=== PATIENT | male | born 1965 | race Two or more races ===

== ENCOUNTER 2017-04-24 10:18 | Emergency (ER) | payer BC, OTHER ==
[2017-04-24 10:24] VITALS: BP 131/77; PULSE 86; TEMP 98.9; BMI 42.3
[2017-04-24] MEDS ORDERED: IBUPROFEN 400 MG TABLET (FP) PO ONE (11:31)
--- NOTE | 2017-04-24 11:56 | PDOC ---
History of Present Illness - General Chief Complaint: Abscess Boil Stated Complaint: WOUND INFECTION Time Seen by Provider: 04/24/17 11:13 History Source: Patient - History of Present Illness Timing/Duration: reports: other Location: reports: torso Past History - Past Medical History Allergies/Adverse Reactions: Allergies Allergy/AdvReac Type Severity Reaction Status Date / Time No Known Allergies Allergy Verified 04/24/17 10:24 Home Medications: Ambulatory Orders Clindamycin [Cleocin -] 300 mg PO Q6HPO #27 capsule 04/24/17 Ibuprofen [Motrin -] 600 mg PO TID #21 tablet 04/24/17 Diabetes: No (BEFORE GASTYRIC BYPASS) - Surgical History Abdominal Surgery: (GASTRIC BY PASS) Cholecystectomy: Yes - Psycho/Social/Smoking Cessation Hx Suicidal Ideation: No Smoking History: Never smoked Hx Alcohol Use: Yes (OCCASIONALLY) Drug/Substance Use Hx: No Review of Systems - Review of Systems Constitutional: No: Chills, Fever, Malaise ABD/GI: Yes: Other (abscess to abd wall) *Physical Exam - Vital Signs Last Vital Signs Temp Pulse Resp BP Pulse Ox 98.9 F 86 16 131/77 98 04/24/17 10:19 04/24/17 10:19 04/24/17 10:19 04/24/17 10:19 04/24/17 10:19 - Physical Exam General Appearance: Yes: Appropriately Dressed. No: Apparent Distress HEENT: positive: Normal Voice Neck: positive: Supple Respiratory/Chest: negative: Respiratory Distress Gastrointestinal/Abdominal: positive: Other (4x4cm induration w/ overlying erythema to mid lower abd wall, ?fluctuance) Integumentary: positive: Dry, Warm Neurologic: positive: Fully Oriented, Alert, Normal Mood/Affect Procedures - Incision and Drainage I&D Site: Bilateral: Abdomen Betadine cleansed: Yes Anesthesia: 1% Lidocaine Blade Size: 11 Attempts: 1 (w/ scamt pus) Iodinated Packin/4 in Complications: none Dressing: Yes Medical Decision Making - Medical Decision Making 04/24/17 11:33 51 yo M, obesity, diet controlled DM after gastric surgery, p/w pain and swelling to lower abd wall. Pt states he noticed "a pimple" to lower abd several days ago and noticed it getting bigger and more painful after he popped it. No f/c See exam Abd wall abscess w/ cellulitis Stable and non-toxic simone 4x4 induration w/ overlying erythema to mid lower abd wall, no e/o deeper involvement -tetanus UTD -pain control -I&D -abx -will check FS as diet controlled DM, not on meds, c/o ?polyuria/dipsia 04/24/17 12:40 04/24/17 12:42 04/24/17 13:18 FS 113. Pt stable for discharge w/ wound check in 2 days. To follow up with his PMD as well *DC/Admit/Observation/Transfer Diagnosis at time of Disposition: Abdominal wall abscess - Discharge Dispostion Disposition: HOME Condition at time of disposition: Improved - Prescriptions Prescriptions: Clindamycin [Cleocin -] 300 mg PO Q6HPO #27 capsule Ibuprofen [Motrin -] 600 mg PO TID #21 tablet - Patient Instructions Printed Discharge Instructions: DI for Incision and Drainage of a Skin Abscess Additional Instructions: Take medications as directed and return to ED in 2 days for wound check Keep wound dry for 2 days
[2017-04-24] MEDS ORDERED: CLINDAMYCIN HCL 300 MG CAPSULE PO ONE (12:34)
[2017-04-24] MEDS ORDERED: CLINDAMYCIN HCL 150 MG CAPSULE (FP) ONE (12:39)
== END 2017-04-24 13:34 | disposition home or self-care (01) ==
LOC: JERFT 10:18
PROC: 0H97XZZ Drainage of Abdomen Skin, External Approach (ICD-10-PCS; principal; 2017-04-24)
DX: L02.211 Cutaneous abscess of abdominal wall (principal); E66.9 Obesity, unspecified; E11.9 Type 2 diabetes mellitus without complications; Z68.41 Body mass index [BMI] 40.0-44.9, adult; Z98.84 Bariatric surgery status
CPT/HCPCS: 87070; 87186; 87205; 99281-25

== ENCOUNTER 2017-04-26 09:33 | Emergency (ER) | payer BC ==
[2017-04-26 09:42] VITALS: BP 117/69; PULSE 86; TEMP 98.9; BMI 42.3
--- NOTE | 2017-04-26 10:17 | PDOC ---
Suture Removal/Wound Check HPI - History of Present Illness Chief Complaint: Revisit,Wound Recheck Stated Complaint: REVISIT, FOLLOW UP Time Seen by Provider: 04/26/17 10:01 History Source: Yes: Patient Exam Limitations: Yes: No Limitations Treated at: [facility] Date of Last ED visit: 04/24/17 - Previous ED Treatment Type of procedure performed on last visit: Yes: I&D of Abscess Tetanus Immunization: Yes: Up to Date Past History - Past Medical History Allergies/Adverse Reactions: Allergies No Known Allergies Allergy (Verified 04/26/17 09:42) Home Medications: Ambulatory Orders Clindamycin [Cleocin -] 300 mg PO Q6HPO #27 capsule 04/24/17 Ibuprofen [Motrin -] 600 mg PO TID #21 tablet 04/24/17 - Social History Smoking Status: Never smoked Suture Removal/Wound Check PE - Physical Exam Laceration/Wound Check Symptoms: reports: None Comments: 04/26/17 16:57 lower abdomen with packing in place form previous I&D approximately [id number] no drainage pt states redness and pain has improved , pt taking antibiotics and pain meds Procedures - Additional Procedures Progress: 04/26/17 16:58 wound packing removed and re-dressed with sterile gauze. Medical Decision Making - Medical Decision Making 04/26/17 16:58 cc: packing removal pt tolerated well will place sterile gauze and have pt follow up with the PMD next week or the surgeon pt agrees with plan of care *DC/Admit/Observation/Transfer Diagnosis at time of Disposition: Wound check, abscess - Discharge Dispostion Disposition: HOME Condition at time of disposition: Good - Referrals Referrals: Milind Candelario MD [Primary Care Provider] - - Patient Instructions Additional Instructions: follow with your doctor tomorrow or Sunday continue antibiotics warm compresses to the area keep covered with the gauze - Post Discharge Activity Work/School Note: Back to Work
== END 2017-04-26 10:38 | disposition home or self-care (01) ==
LOC: JERFT 09:33
DX: Z48.01 Encounter for change or removal of surgical wound dressing (principal)
CPT/HCPCS: 99281-25

== ENCOUNTER 2018-04-15 07:26 | Emergency (ER) | payer BC ==
[2018-04-15 07:55] VITALS: BP 108/71; PULSE 74; TEMP 97.9; BMI 39.6
--- NOTE | 2018-04-15 08:22 | PDOC ---
History of Present Illness - General Chief Complaint: Cold Symptoms Stated Complaint: COUGHING Time Seen by Provider: 04/15/18 08:17 History Source: Patient Exam Limitations: No Limitations - History of Present Illness Initial Comments: 04/15/18 08:18 52 yr male with cough sinus congestion drip in back of throat for 2-3 days. no fever no sob non smoker. Past History - Past Medical History Allergies/Adverse Reactions: Allergies Allergy/AdvReac Type Severity Reaction Status Date / Time No Known Allergies Allergy Verified 04/15/18 07:52 Home Medications: Ambulatory Orders Clindamycin [Cleocin -] 300 mg PO Q6HPO #27 capsule 04/24/17 Ibuprofen [Motrin -] 600 mg PO TID #21 tablet 04/24/17 Fluticasone Prop 0.05% Nasal [Flonase -] 1 - 2 spray NS DAILY #1 spray.pump 02/27 COPD: No Diabetes: No (BEFORE GASTYRIC BYPASS) Other medical history: DENIES. - Surgical History Abdominal Surgery: Yes (GASTRIC BY PASS) Cholecystectomy: Yes GI Surgery: Yes (GASTRIC BY PASS) - Suicide/Smoking/Psychosocial Hx Smoking History: Never smoked Hx Alcohol Use: Yes (socially) Drug/Substance Use Hx: No Review of Systems - Review of Systems Able to Perform ROS?: Yes Is the patient limited Czech proficient: No Constitutional: No: Symptoms Reported HEENTM: Yes: Symptoms Reported Respiratory: Yes: Cough *Physical Exam - Vital Signs Last Vital Signs Temp Pulse Resp BP Pulse Ox 97.9 F 74 19 108/71 97 04/15/18 07:52 04/15/18 07:52 04/15/18 07:52 04/15/18 07:52 04/15/18 07:52 - Physical Exam General Appearance: Yes: Nourished, Appropriately Dressed HEENT: positive: EOMI, HORTENCIA, Other (post nasal drip noted, sinus congestion no tenderness no nasal discharge) Neck: negative: Tender Respiratory/Chest: positive: Lungs Clear, Normal Breath Sounds. negative: Decreased Breath Sounds, Rhonchi, Stridor, Wheezing Cardiovascular: positive: Regular Rhythm, Regular Rate Musculoskeletal: positive: Normal Inspection Extremity: positive: Normal Capillary Refill, Normal Inspection Integumentary: positive: Normal Color, Dry, Warm Neurologic: positive: director business intelligence II-XII NML intact, Fully Oriented, Alert, Normal Mood/ Affect, Motor Strength 03/16 Medical Decision Making - Medical Decision Making 04/15/18 09:45 cc: nasal discharge sinus congestion post nasal drip with dry cough no fever no wheezing will treat for viral URI *DC/Admit/Observation/Transfer Diagnosis at time of Disposition: Sinus congestion - Discharge Dispostion Disposition: HOME Condition at time of disposition: Good - Prescriptions Prescriptions: Fluticasone Prop 0.05% Nasal [Flonase -] 1 - 2 spray NS DAILY #1 spray.pump - Referrals Referrals: Milind Candelario MD [Primary Care Provider] - - Patient Instructions Additional Instructions: drink pleanty of fluids use Flonase nasal spray as directed use over the counter dayquil as directed - Post Discharge Activity
== END 2018-04-15 08:36 | disposition home or self-care (01) ==
LOC: JERFT 07:26
DX: J34.89 Other specified disorders of nose and nasal sinuses (principal)
CPT/HCPCS: 99281-25

== ENCOUNTER 2018-07-22 15:16 | Emergency (ER) | payer BC ==
[2018-07-22 15:48] VITALS: BP 121/74; PULSE 81; TEMP 98.9; BMI 39.1
--- NOTE | 2018-07-22 15:49 | PDOC ---
Rapid Medical Evaluation Chief Complaint: Hematuria Time Seen by Provider: 07/22/18 15:43 Medical Evaluation: Allergies Allergy/AdvReac Type Severity Reaction Status Date / Time No Known Allergies Allergy Verified 07/22/18 15:43 07/22/18 15:44 I have performed a brief in-person evaluation of this patient. The patient presents with a chief complaint of: hematuria since AM Pertinent physical exam findings: well , pale, No CVAT- I have ordered the following: UA/ Spiral CT The patient will proceed to the ED for further evaluation. Discharge Disposition - Referrals Referrals: Milind Candelario MD [Primary Care Provider] - - Patient Instructions - Post Discharge Activity
--- NOTE | 2018-07-22 16:09 | PDOC ---
History of Present Illness - General Chief Complaint: Hematuria Stated Complaint: BLOOD IN URINE Time Seen by Provider: 07/22/18 15:43 - History of Present Illness Initial Comments: 52-year-old male without comorbidities presents for evaluation of hematuria. He states he had 3 episodes of hematorrhea starting at 11:30 this morning. His urine is now clear. He does have some associated lower back pain which has resolved. He has not had issues like this in the past. 07/22/18 16:08 Past History - Past Medical History Allergies/Adverse Reactions: Allergies Allergy/AdvReac Type Severity Reaction Status Date / Time No Known Allergies Allergy Verified 07/22/18 15:43 Home Medications: Ambulatory Orders NK [No Known Home Medication] 07/22/18 COPD: No Diabetes: No (BEFORE GASTYRIC BYPASS) - Surgical History Abdominal Surgery: Yes (GASTRIC BY PASS 2010) Cholecystectomy: Yes GI Surgery: Yes (GASTRIC BY PASS) - Suicide/Smoking/Psychosocial Hx Smoking History: Never smoked Hx Alcohol Use: Yes (socially) Drug/Substance Use Hx: No Review of Systems - Review of Systems : Yes: Hematuria Musculoskeletal: Yes: Back Pain All Other Systems: Reviewed and Negative *Physical Exam - Vital Signs Last Vital Signs Temp Pulse Resp BP Pulse Ox 98.9 F 81 17 121/74 97 07/22/18 15:46 07/22/18 15:46 07/22/18 15:46 07/22/18 15:46 07/22/18 15:46 - Physical Exam Comments: HEAD: NC/AT EYES: Conjuntiva clear Ears: Canals and TM's normal NOSE: No d/c THROAT: Moist mucous membrances, oral pharanx clear, uvula midline NECK: Supple without adenopathy CARDIAC: S1 S2 LUNGS: CTA Full and Equal breath sounds ABDOMEN: Soft NT ND, no CVA tenderness MS: Full ROM in all joints without edema NEUROLOGIC: No gross sensory or motor deficits, NVID SKIN: Normal color and temperature no lesions or rashes 07/22/18 16:09 Medical Decision Making - Medical Decision Making UA and spiral CT pending 07/22/18 16:09 07/22/18 17:50 CT and urine have been reviewed, patient may have passed a stone I will have her follow-up with his primary care physician with instructions to return to the emergency room should symptoms worsen. *DC/Admit/Observation/Transfer Diagnosis at time of Disposition: Hematuria - Discharge Dispostion Disposition: HOME Condition at time of disposition: Stable Decision to Admit order: No - Referrals Referrals: Milind Candelario MD [Primary Care Provider] - - Patient Instructions Printed Discharge Instructions: Blood in Urine Additional Instructions: Return to the emergency room should symptoms return and you experience any pain. The CAT scan today was normal without any evidence of kidney stones. Follow-up with your primary care physician in one to 2 days for further evaluation and treatment options. - Post Discharge Activity
[2018-07-22 16:20] LABS: URINE APPEARANCE CLEAR; URINE BILIRUBIN NEGATIVE (<2.0 mg/dL); URINE COLOR YELLOW; URINE GLUCOSE (UA) NEGATIVE (NEGATIVE); URINE KETONE NEGATIVE (NEGATIVE); URINE LEUK ESTERASE NEGATIVE (NEGATIVE); URINE NITRITE NEGATIVE (NEGATIVE); URINE PROTEIN NEGATIVE (NEGATIVE)
[2018-07-22 16:27] LABS: EPI CELLS RARE /HPF (FEW); URINE MUCUS RARE
== END 2018-07-22 17:53 | disposition home or self-care (01) ==
LOC: JERFT 15:16
DX: R31.9 Hematuria, unspecified (principal); Z98.84 Bariatric surgery status
CPT/HCPCS: 74176; 81003; 81015; 99281-25

== ENCOUNTER 2019-05-11 07:39 | Emergency (ER) | payer BC ==
[2019-05-11 07:58] VITALS: BP 114/77; PULSE 68; TEMP 97.8; BMI 40.7
--- NOTE | 2019-05-11 08:18 | PDOC ---
History of Present Illness - General Chief Complaint: Respiratory Stated Complaint: COUGHING & DIARRHEA Time Seen by Provider: 05/11/19 08:07 History Source: Patient Exam Limitations: No Limitations Past History - Past Medical History Allergies/Adverse Reactions: Allergies Allergy/AdvReac Type Severity Reaction Status Date / Time No Known Allergies Allergy Verified 05/11/19 07:50 Home Medications: Ambulatory Orders Fluticasone Prop 0.05% Nasal [Flonase -] 1 - 2 spray NS BID #1 spray.pump COPD: No Diabetes: No (BEFORE GASTYRIC BYPASS) - Surgical History Abdominal Surgery: Yes (GASTRIC BY PASS 2010) Cholecystectomy: Yes GI Surgery: Yes (GASTRIC BY PASS) - Suicide/Smoking/Psychosocial Hx Smoking History: Never smoked Hx Alcohol Use: Yes (socially) Drug/Substance Use Hx: No *Physical Exam - Vital Signs Last Vital Signs Temp Pulse Resp BP Pulse Ox 97.8 F 68 18 114/77 99 05/11/19 07:46 05/11/19 07:46 05/11/19 07:46 05/11/19 07:46 05/11/19 07:46 - Physical Exam General Appearance: No: Apparent Distress HEENT: positive: TMs Normal, Pharynx Normal, Other (mild nasal congestion). negative: Muffled/Hoarse voice, Pharyngeal Erythema, Tonsillar Exudate, Tonsillar Erythema, Rhinorrhea, Sinus Tenderness Respiratory/Chest: positive: Lungs Clear, Normal Breath Sounds. negative: Respiratory Distress Cardiovascular: positive: Regular Rhythm, Regular Rate, S1, S2. negative: Murmur Gastrointestinal/Abdominal: positive: Normal Bowel Sounds, Soft. negative: Tender, Distended, Guarding, Rebound Integumentary: positive: Normal Color Neurologic: positive: Alert, Normal Mood/Affect Medical Decision Making - Medical Decision Making 53 y/o M with no sig pmh, nonsmoker presents due to concern for yellowish nasal discharge from nose yesterday along with mild nasal congestion. Mentions having productive cough x 2 weeks, improving with OTC cough medications. Also having watery diarrhea x 2 weeks (around 3 loose movements/day). Denies fever, throat pain, postnasal drip, sneezing, sob, cp, abd pain, n/v, recent travel, sick contacts. Possible viral syndrome Unlikely PNA given afebrile and lungs clear Stable for dc 05/11/19 08:14 *DC/Admit/Observation/Transfer Diagnosis at time of Disposition: Viral syndrome - Discharge Dispostion Disposition: HOME Condition at time of disposition: Stable Decision to Admit order: No - Prescriptions Prescriptions: Fluticasone Prop 0.05% Nasal [Flonase -] 1 - 2 spray NS BID #1 spray.pump - Referrals Referrals: Milind Candelario MD [Primary Care Provider] - 2 Days - Patient Instructions Printed Discharge Instructions: DI for Viral Syndrome Additional Instructions: Thank you for choosing [facility]. It was a pleasure taking care of you. Drink at least 2 L of water to stay hydrated Use saline nasal spray or Nedi pot as needed for congestion You can also use the Flonase nasal spray for congestion Follow-up with your doctor in 2 days Return to the Emergency Department if your symptoms worsen or persist or have other concerning symptoms. - Post Discharge Activity
== END 2019-05-11 08:19 | disposition home or self-care (01) ==
LOC: JERFT 07:39 → JER 07:39 → JERFT 08:19
DX: B34.9 Viral infection, unspecified (principal); Z98.84 Bariatric surgery status
CPT/HCPCS: 99281-25

== ENCOUNTER 2019-09-16 20:07 | Emergency (ER) | payer BC ==
[2019-09-16 20:14] VITALS: BP 132/80; PULSE 85; TEMP 98; BMI 41.5
[2019-09-16] MEDS ORDERED: ACETAMINOPHEN 500 MG TABLET (FP) PO STA (23:05)
[2019-09-16] MEDS ORDERED: ACETAMINOPHEN 325 MG TABLET (FP) ONE (23:19)
[2019-09-16 23:26] LABS: BASO % 0.9 % (0-2.0); EOS % 3.1 % (0-4.5); HEMATOCRIT 41.1 % (35.4-49); HEMOGLOBIN 14.2 GM/dL (11.7-16.9); LYMPH % 29.6 % (8-40); MCH 30.9 pg (25.7-33.7); MCHC 34.5 g/dl (32.0-35.9); MEAN CELL VOLUME 89.5 fl (80-96); MEAN PLT VOLUME 8.4 fl (7.5-11.1); MONO % 5.5 % (3.8-10.2); NEUT % 60.9 % (42.8-82.8); PLATELET COUNT 200 K/MM3 (134-434); WHITE BLOOD COUNT 6.9 K/mm3 (4.0-10.0)
[2019-09-16 23:55] LABS: ALBUMIN 3.7 g/dl (3.4-5.0); ALK PHOS 82 U/L (45-117); ANION GAP 6 MMOL/L (8-16); BILIRUBIN,TOTAL 0.8 mg/dL (0.2-1); BLOOD UREA NITROGEN 8.4 mg/dL (7-18); CALCIUM 8.4 mg/dL (8.5-10.1); CHLORIDE 107 mmol/L (98-107); CO2 27 mmol/L (21-32); CREATININE 0.8 mg/dL (0.55-1.3); GLUCOSE,RANDOM 99 mg/dL (74-106); POTASSIUM 4.1 mmol/L (3.5-5.1); SGOT/AST 20 U/L (15-37); SGPT/ALT 32 U/L (13-61); SODIUM 139 mmol/L (136-145)
--- NOTE | 2019-09-17 00:31 | PDOC ---
Documentation entered by Shivani Lopez SCRIBE, acting as scribe for Priyanka Rosario MD. Priyanka Rosario MD: This documentation has been prepared by the John muñoz Sammi, SCRIBE, under my direction and personally reviewed by me in its entirety. I confirm that the documentation accurately reflects all work, treatment, procedures, and medical decision making performed by me. History of Present Illness - General Chief Complaint: Headache Stated Complaint: HYPERTENSION Time Seen by Provider: 09/16/19 22:36 History Source: Patient Exam Limitations: No Limitations - History of Present Illness Initial Comments: 09/16/19 23:09 The patient is a 54 year old male, with a PMH of DM (resolved with weight loss) , who presents to the emergency department for evaluation of several days of headache which he describes as feeling like his blood pressure is elevated (pt does not have hx of HTN). He reports taking tylenol x2tabs yesterday with no relief. The patient also describes intermittent blurry vision over the past couple of days. No weakness, numbness, tingling, confusion, slurred speech. Denies fever or chills. The patient states he works on [employer] and reports that he is always looking up at the tv monitors. He follows with a pain doctor for chronic neck and trapezius muscle strain, where he recieved injections and was advised to participate in physical therapy but was noncompliant with those orders. He has not been evaluated by this specialist in ~3 years. PCP: [facility] Surgical hx: gastric bypass Social hx: social drinker Family hx: father - HTN, mother - cancer() Past History - Past Medical History Allergies/Adverse Reactions: Allergies Allergy/AdvReac Type Severity Reaction Status Date / Time No Known Allergies Allergy Verified 05/11/19 07:50 Home Medications: Ambulatory Orders Fluticasone Prop 0.05% Nasal [Flonase -] 1 - 2 spray NS BID #1 spray.pump COPD: No Diabetes: No (BEFORE GASTYRIC BYPASS) - Surgical History Abdominal Surgery: Yes (GASTRIC BY PASS 2010) Cholecystectomy: Yes GI Surgery: Yes (GASTRIC BY PASS) - Psycho Social/Smoking Cessation Hx Smoking History: Never smoked Hx Alcohol Use: No Drug/Substance Use Hx: No Review of Systems - Review of Systems Comments:: 09/16/19 23:11 CONSTITUTIONAL: Absent: fever, no chills, no fatigue EYES: +blurry vision ENT: Absent: ear pain, no sore throat CARDIOVASCULAR: Absent: chest pain, no palpitations RESPIRATORY: Absent: cough, no SOB GI: Absent: abdominal pain, no nausea, no vomiting, no constipation, no diarrhea GENITOURINARY: Absent: dysuria, no frequency, no hematuria MUSKULOSKELETAL: +neck pain Absent: back pain, no arthralgia, no myalgia NEURO: +headache Absent: numbness, tingling, weakness *Physical Exam - Vital Signs Last Vital Signs Temp Pulse Resp BP Pulse Ox 98 F 85 20 132/80 97 09/16/19 20:10 09/16/19 20:10 09/16/19 20:10 09/16/19 20:10 09/16/19 20:10 - Physical Exam Comments: 09/16/19 23:12 GENERAL: Well developed, well nourished. Awake and alert. No acute distress. HEENT: Normocephalic, atraumatic. PERRLA, EOMI. No conjunctival pallor. Sclera are non- icteric. Moist mucous membranes. Oropharynx is clear. NECK: Supple. Full ROM. No JVD. Carotid pulses 2+ and symmetric, without bruits. No thyromegaly. No lymphadenopathy. CARDIOVASCULAR: Regular rate and rhythm. No murmurs, rubs, or gallops. Distal pulses are 2+ and symmetric. PULMONARY: No evidence of respiratory distress. Lungs clear to auscultation bilaterally. No wheezing, rales or rhonchi. ABDOMINAL: Soft. Non-tender. Non-distended. No rebound or guarding. No organomegaly. Normoactive bowel sounds. MUSCULOSKELETAL Normal range of motion at all joints. No bony deformities or tenderness. No CVA tenderness. EXTREMITIES: No cyanosis. No clubbing. No edema. No calf tenderness. NEUROLOGICAL: Alert, awake, appropriate. Cranial nerves 2-12 intact. No deficits to light touch, upper extremities and lower extremities. No motor deficits in the in face , upper extremities and lower extremities. Normal speech. ED Treatment Course - LABORATORY CBC & Chemistry Diagram: 09/16/19 23:20 09/16/19 23:20 - ADDITIONAL ORDERS Additional order review: Laboratory Results 09/16/19 23:20 Sodium 139 Potassium 4.1 Chloride 107 Carbon Dioxide 27 Anion Gap 6 L BUN 8.4 Creatinine 0.8 Est GFR (CKD-EPI)AfAm 116.56 Est GFR (CKD-EPI)NonAf 100.57 Random Glucose 99 Calcium 8.4 L Total Bilirubin 0.8 AST 20 ALT 32 Alkaline Phosphatase 82 Creatine Kinase 203 Creatine Kinase Index 1.0 CK-MB (CK-2) 2.1 Troponin I < 0.02 Total Protein 7.0 Albumin 3.7 09/16/19 23:20 RBC 4.60 MCV 89.5 MCHC 34.5 RDW 14.0 MPV 8.4 Neutrophils % 60.9 Lymphocytes % 29.6 Monocytes % 5.5 Eosinophils % 3.1 Basophils % 0.9 - Medications Given in the ED: ED Medications Discontinued Medications Generic Name Dose Route Start Last Admin Trade Name Freq PRN Reason Stop Dose Admin Acetaminophen 975 mg 09/16/19 23:05 09/16/19 23:20 Tylenol - PO 09/16/19 23:06 975 mg ONCE STA Administration Medical Decision Making - Medical Decision Making 09/17/19 00:16 54-year-old male who presents with chronic neck pain, some concern about his glucose and some headache on the top of his head He does work as a security personel at [employer] and spends many hours looking at the monitors with his head leaning back He has had neck pain in the past and has had injections for it but has not seen his pain specialist in 3 years 09/17/19 00:27 Labs are reviewed Patient is not hypertensive CBC was within normal limits Chemistries were unremarkable He had a negative troponin ,normal LFTs, normal kidney function and unremarkable electrolytes headache resolved with Tylenol 09/17/19 00:29 Impression trapezius muscle strain, chronic neck pain Patient discharged to follow-up with his PCP Discharge - Discharge Information Problems reviewed: Yes Clinical Impression/Diagnosis: Chronic neck pain, Trapezius muscle spasm Condition: Good Disposition: HOME - Follow up/Referral Referrals: Milind Candelario MD [Primary Care Provider] - - Patient Discharge Instructions Patient Printed Discharge Instructions: DI for Chronic Neck Pain, DI for Neck Pain Additional Instructions: please follow p with your primary physician - Post Discharge Activity
== END 2019-09-17 00:51 | disposition home or self-care (01) ==
LOC: JER 20:07
DX: M62.838 Other muscle spasm (principal); M54.2 Cervicalgia; Z98.84 Bariatric surgery status
CPT/HCPCS: 36415; 80053; 82550; 82553; 84484; 85025; 99282-25

== ENCOUNTER 2021-01-01 18:11 | Emergency (ER) | payer BC ==
[2021-01-01 18:44] VITALS: BMI 42.3
[2021-01-01] MEDS ORDERED: FAMOTIDINE 20 MG/50 ML IVPB 20 MG/50 ML MG IVPB ONE ×2 (19:08→19:47)
[2021-01-01] MEDS ORDERED: LACTATED RINGERS SOLUTION 1,000 ML IV STA (19:08)
[2021-01-01] MEDS ORDERED: ACETAMINOPHEN 1000 MG/100 ML VIAL (NON FORMULARY) IVPB ONE (19:08)
[2021-01-01] MEDS ORDERED: ACETAMINOPHEN INJECTION 100 ML IVPB ONE (19:47)
[2021-01-01 19:51] LABS: BASO % 0.5 % (0-2.0); EOS % 2.2 % (0-4.5); HEMATOCRIT 41.4 % (35.4-49); HEMOGLOBIN 14.3 GM/dL (11.7-16.9); LYMPH % 17.3 % (8-40); MCHC 34.6 g/dl (32.0-35.9); MEAN CELL VOLUME 89.5 fl (80-96); MEAN PLT VOLUME 8.4 fl (7.5-11.1); MONO % 5.5 % (3.8-10.2); NEUT % 74.5 % (42.8-82.8); PLATELET COUNT 206 K/MM3 (134-434); RBC 4.62 M/mm3 (4.00-5.60); RDW 14.1 % (11.9-15.9); WHITE BLOOD COUNT 7.8 K/mm3 (4.0-10.0)
[2021-01-01 20:36] LABS: CHLORIDE 104 mmol/L (98-107); POTASSIUM 4.1 mmol/L (3.5-5.1); SODIUM 140 mmol/L (136-145)
[2021-01-01 20:40] LABS: ALBUMIN 3.7 g/dl (3.4-5.0); ANION GAP 10 MMOL/L (8-16); BLOOD UREA NITROGEN 8.7 mg/dL (7-18); CALCIUM 8.7 mg/dL (8.5-10.1); CO2 27 mmol/L (21-32); GLUCOSE,RANDOM 140 mg/dL (74-106); LIPASE 140 U/L (73-393)
[2021-01-01 20:42] LABS: CREATININE 0.8 mg/dL (0.55-1.3); SGOT/AST 27 U/L (15-37); SGPT/ALT 55 U/L (13-61)
[2021-01-01 20:45] LABS: ALK PHOS 74 U/L (45-117); BILIRUBIN,TOTAL 0.8 mg/dL (0.2-1); TOT PROT 7.3 g/dl (6.4-8.2)
[2021-01-01] MEDS ORDERED: MAG HYDROX/AL HYDROX/SIMETH 30 ML UNIT-DOSE CUP PO ONE (20:47)
[2021-01-01] MEDS ORDERED: MAG HYDROX/AL HYDROX/SIMETH 30 ML UNIT-DOSE CUP ONE (20:53)
[2021-01-01 21:35] VITALS: BP 111/68; PULSE 67; TEMP 98.2
== END 2021-01-02 00:01 | disposition home or self-care (01) ==
LOC: JER 18:11
PROC: 3E033NZ Introduction of Analgesics, Hypnotics, Sedatives into Peripheral Vein, Percutaneous Approach (ICD-10-PCS; principal; 2021-01-01)
PROC: 3E033GC Introduction of Other Therapeutic Substance into Peripheral Vein, Percutaneous Approach (ICD-10-PCS; 2021-01-01)
PROC: 3E0337Z Introduction of Electrolytic and Water Balance Substance into Peripheral Vein, Percutaneous Approach (ICD-10-PCS; 2021-01-01)
DX: R10.13 Epigastric pain (principal)
CPT/HCPCS: 36415; 74177-TC; 80053; 82550; 82553; 83690; 84484; 85025; 93005; 93010; 99285-25; J0131; Q9967

== ENCOUNTER 2022-06-12 14:46 | Emergency (ER) | payer BC ==
[2022-06-12 15:23] VITALS: BP 118/72; PULSE 83; RESP 17; TEMP 98.2; BMI 40.7
[2022-06-12] MEDS ORDERED: SODIUM CHLORIDE 1,000 ML IV STA (16:30)
[2022-06-12] MEDS ORDERED: KETOROLAC TROMETHAMINE 30 MG/1 ML VIAL IVPUSH ONE (16:30)
[2022-06-12] MEDS ORDERED: KETOROLAC TROMETHAMINE 30 MG/1 ML VIAL ONE (16:39)
== END 2022-06-12 18:40 | disposition home or self-care (01) ==
LOC: JER 14:46
PROC: 3E033GC Introduction of Other Therapeutic Substance into Peripheral Vein, Percutaneous Approach (ICD-10-PCS; principal; 2022-06-12)
DX: M54.2 Cervicalgia (principal)
CPT/HCPCS: 99284-25

== ENCOUNTER 2022-11-24 07:52 | Emergency (ER) | payer BC ==
[2022-11-24 08:01] VITALS: TEMP 98.2; BMI 41.5
[2022-11-24] MEDS ORDERED: SODIUM CHLORIDE 1,000 ML IV STA (09:13)
[2022-11-24] MEDS ORDERED: ACETAMINOPHEN 1000 MG/100 ML BAG IVPB ONE (09:13)
[2022-11-24] MEDS ORDERED: ONDANSETRON 4 MG/2 ML VIAL IVPUSH ONE (09:13)
[2022-11-24] MEDS ORDERED: ACETAMINOPHEN INJECTION 100 ML IVPB ONE (09:20)
[2022-11-24] MEDS ORDERED: ONDANSETRON 4 MG/2 ML VIAL ONE (09:20)
[2022-11-24 10:16] LABS: PH,URINE 5.5 (5.0-8.0); URINE APPEARANCE CLEAR; URINE BILIRUBIN NEGATIVE (NEGATIVE); URINE COLOR YELLOW; URINE GLUCOSE (UA) NEGATIVE (NEGATIVE); URINE KETONE NEGATIVE (NEGATIVE); URINE LEUK ESTERASE NEGATIVE (NEGATIVE); URINE NITRITE NEGATIVE (NEGATIVE); URINE PROTEIN TRACE (NEGATIVE)
[2022-11-24 10:16] LABS: BASO % 0.8 % (0-2.0); HEMATOCRIT 41.4 % (35.4-49); LYMPH % 25.3 % (8-40); MCH 29.9 pg (25.7-33.7); MCHC 33.9 g/dl (32.0-35.9); MEAN CELL VOLUME 88.3 fl (80-96); MEAN PLT VOLUME 9.1 fl (7.5-11.1); MONO % 6.4 % (3.8-10.2); NEUT % 63.5 % (42.8-82.8); PLATELET COUNT 167 10^3/uL (134-434); RBC 4.68 M/mm3 (4.00-5.60); WHITE BLOOD COUNT 6.8 K/mm3 (4.0-10.0)
[2022-11-24 10:26] LABS: CALCIUM 8.5 mg/dL (8.5-10.1)
[2022-11-24 10:27] LABS: ALBUMIN 3.6 g/dl (3.4-5.0)
[2022-11-24 10:30] LABS: CREATININE 0.8 mg/dL (0.55-1.3)
[2022-11-24 10:32] LABS: BILIRUBIN,TOTAL 0.9 mg/dL (0.2-1); TOT PROT 7.1 g/dl (6.4-8.2)
[2022-11-24 10:35] LABS: N-TERMINAL BNP 18.4 pg/ml (5-125)
[2022-11-24 11:34] VITALS: BP 103/56; PULSE 75; RESP 18
[2022-11-24 12:57] LABS: CALCIUM 7.9 mg/dL (8.5-10.1)
[2022-11-24 12:58] LABS: BLOOD UREA NITROGEN 8.2 mg/dL (7-18)
[2022-11-24 13:01] LABS: CREATININE 0.7 mg/dL (0.55-1.3)
== END 2022-11-24 13:36 | disposition home or self-care (01) ==
LOC: JER 07:52
PROC: 3E033GC Introduction of Other Therapeutic Substance into Peripheral Vein, Percutaneous Approach (ICD-10-PCS; principal; 2022-11-24)
DX: K52.9 Noninfective gastroenteritis and colitis, unspecified (principal)
CPT/HCPCS: 36415; 71046-TC-FY; 74177-TC; 80048; 80053; 81003; 83690; 83880; 84484; 85025; 93005; 93010; 99285-25; Q9967

== ENCOUNTER 2023-02-26 16:06 | Emergency (ER) | payer BC ==
[2023-02-26 16:17] VITALS: BP 125/80; PULSE 92; RESP 18; TEMP 97.8; BMI 40.7
[2023-02-26] MEDS ORDERED: SODIUM CHLORIDE 0.9% 500 ML INFUS.BAG IV ONE (17:36)
[2023-02-26] MEDS ORDERED: ACETAMINOPHEN 1000 MG/100 ML BAG IVPB ONE (17:36)
[2023-02-26] MEDS ORDERED: ONDANSETRON 4 MG/2 ML VIAL IVPUSH ONE (17:36)
[2023-02-26] MEDS ORDERED: ACETAMINOPHEN INJECTION 100 ML IVPB ONE (17:41)
[2023-02-26] MEDS ORDERED: ONDANSETRON 4 MG/2 ML VIAL ONE (17:42)
[2023-02-26 18:32] LABS: BASO % 0.4 % (0-2.0); EOS % 4.1 % (0-4.5); HEMATOCRIT 39.3 % (35.4-49); HEMOGLOBIN 14.2 GM/dL (11.7-16.9); LYMPH % 24.2 % (8-40); MCHC 36.1 g/dl (32.0-35.9); MEAN CELL VOLUME 86.1 fl (80-96); MEAN PLT VOLUME 8.9 fl (7.5-11.1); NEUT % 65.3 % (42.8-82.8); PLATELET COUNT 207 10^3/uL (134-434); RBC 4.56 M/mm3 (4.00-5.60); RDW 13.6 % (11.9-15.9); WHITE BLOOD COUNT 6.1 K/mm3 (4.0-10.0)
[2023-02-26 18:51] LABS: ALBUMIN 3.5 g/dl (3.4-5.0); CALCIUM 8.3 mg/dL (8.5-10.1)
[2023-02-26 18:52] LABS: BLOOD UREA NITROGEN 9.8 mg/dL (7-18); MAGNESIUM 1.8 mg/dL (1.8-2.4)
[2023-02-26 18:54] LABS: CREATININE 0.8 mg/dL (0.55-1.3)
[2023-02-26 18:56] LABS: BILIRUBIN,TOTAL 1.1 mg/dL (0.2-1); TOT PROT 7.1 g/dl (6.4-8.2)
== END 2023-02-27 00:26 | disposition home or self-care (01) ==
LOC: JER 16:06
PROC: 3E0333Z Introduction of Anti-inflammatory into Peripheral Vein, Percutaneous Approach (ICD-10-PCS; principal; 2023-02-26)
PROC: 3E033GC Introduction of Other Therapeutic Substance into Peripheral Vein, Percutaneous Approach (ICD-10-PCS; 2023-02-26)
DX: R11.2 Nausea with vomiting, unspecified (principal); R19.7 Diarrhea, unspecified; R10.84 Generalized abdominal pain
CPT/HCPCS: 36415; 74177-TC; 76705-TC; 80053; 83690; 83735; 85025; 99285-25; Q9967

== ENCOUNTER 2023-12-18 23:10 | Emergency (ER) | payer BC ==
[2023-12-18 23:18] VITALS: TEMP 98.2; BMI 47.0
[2023-12-19] MEDS ORDERED: ONDANSETRON 4 MG/2 ML VIAL ONE (00:53)
[2023-12-19] MEDS ORDERED: morphine SULFATE 4 MG/ML VIAL ONE (00:53)
[2023-12-19] MEDS ORDERED: FAMOTIDINE 20 MG/50 ML IVPB 20 MG/50 ML MG IVPB ONE (00:53)
[2023-12-19] MEDS: ONDANSETRON 4 MG/2 ML VIAL IVPUSH ONE (01:07)
[2023-12-19] MEDS: morphine CARPU-JECT 4 MG/1 ML DISP.SYRIN IVPUSH ONE (01:07)
[2023-12-19] MEDS: SODIUM CHLORIDE 1,000 ML IV STA (01:07)
[2023-12-19] MEDS: FAMOTIDINE 20 MG/50 ML IVPB 20 MG/50 ML MG IVPB ONE (01:07)
[2023-12-19 01:13] LABS: BASO % 0.7 % (0-2.0); HEMATOCRIT 41.6 % (35.4-49); HEMOGLOBIN 14.5 GM/dL (11.7-16.9); LYMPH % 23.9 % (8-40); MCH 30.3 pg (25.7-33.7); MCHC 34.8 g/dl (32.0-35.9); MEAN CELL VOLUME 87.1 fl (80-96); MEAN PLT VOLUME 8.1 fl (7.5-11.1); MONO % 5.7 % (3.8-10.2); NEUT % 65.7 % (42.8-82.8); PLATELET COUNT 265 10^3/uL (134-434); RBC 4.77 M/mm3 (4.00-5.60); RDW 13.9 % (11.9-15.9); WHITE BLOOD COUNT 8.7 K/mm3 (4.0-10.0)
[2023-12-19 01:14] LABS: PH,URINE 5.5 (5.0-8.0); URINE APPEARANCE CLEAR; URINE BILIRUBIN NEGATIVE (NEGATIVE); URINE COLOR YELLOW; URINE GLUCOSE (UA) NEGATIVE (NEGATIVE); URINE KETONE TRACE (NEGATIVE); URINE LEUK ESTERASE NEGATIVE (NEGATIVE); URINE NITRITE NEGATIVE (NEGATIVE); URINE PROTEIN TRACE (NEGATIVE)
[2023-12-19 01:30] LABS: INR 1.09 (0.83-1.09); PROTHROMBIN TIME (PATIENT) 12.6 SEC (9.7-13.0)
[2023-12-19 01:32] LABS: POTASSIUM 4.1 mmol/L (3.5-5.1)
[2023-12-19 01:33] LABS: ACTIVATED PTT 27.9 SECONDS (25.2-36.5)
[2023-12-19 01:34] LABS: CALCIUM 8.9 mg/dL (8.5-10.1)
[2023-12-19 01:36] LABS: ALBUMIN 3.9 g/dl (3.4-5.0); BLOOD UREA NITROGEN 9.2 mg/dL (7-18)
[2023-12-19 01:38] LABS: CREATININE 0.7 mg/dL (0.55-1.3)
[2023-12-19 01:40] LABS: BILIRUBIN,TOTAL 0.7 mg/dL (0.2-1); TOT PROT 7.3 g/dl (6.4-8.2)
[2023-12-19 03:47] VITALS: BP 119/68; PULSE 78; RESP 19
== END 2023-12-19 03:52 | disposition home or self-care (01) ==
LOC: JER 23:10
PROC: 3E033GC Introduction of Other Therapeutic Substance into Peripheral Vein, Percutaneous Approach (ICD-10-PCS; principal; 2023-12-19)
PROC: 3E033GC Introduction of Other Therapeutic Substance into Peripheral Vein, Percutaneous Approach (ICD-10-PCS; 2023-12-19)
PROC: 3E033GC Introduction of Other Therapeutic Substance into Peripheral Vein, Percutaneous Approach (ICD-10-PCS; 2023-12-19)
DX: R16.0 Hepatomegaly, not elsewhere classified (principal); R10.11 Right upper quadrant pain; R05.9 Cough, unspecified; R14.0 Abdominal distension (gaseous)
CPT/HCPCS: 36415; 71046-TC-FY; 74177-TC; 76705-TC; 80053; 81003; 83605; 84484; 85025; 85610; 85730; 93005; 93010; 99285-25

== ENCOUNTER 2024-06-06 07:28 | Emergency (ER) | payer BC ==
[2024-06-06 07:36] VITALS: BP 123/85; PULSE 74; RESP 18; TEMP 97.5; BMI 40.7
[2024-06-06] MEDS ORDERED: LIDOCAINE 4% PATCH TP ONE (08:32)
[2024-06-06] MEDS ORDERED: KETOROLAC TROMETHAMINE 30 MG/1 ML VIAL ONE (08:32)
[2024-06-06] MEDS: KETOROLAC TROMETHAMINE 30 MG/1 ML VIAL IM ONE (08:42)
[2024-06-06] MEDS: LIDOCAINE 5% TOPICAL PATCH TP ONE (08:42)
[2024-06-06] MEDS ORDERED: LIDOCAINE PATCH REMOVAL MC ONE (22:00)
== END 2024-06-06 10:26 | disposition home or self-care (01) ==
LOC: JER 07:28
PROC: 3E0233Z Introduction of Anti-inflammatory into Muscle, Percutaneous Approach (ICD-10-PCS; principal; 2024-06-06)
DX: R20.2 Paresthesia of skin (principal); M25.512 Pain in left shoulder
CPT/HCPCS: 93005; 93010; 99284-25